=== PATIENT | female | born 1940 | race African-American/Black ===

== ENCOUNTER 2020-07-24 12:21 | Emergency (ER) | payer MEDICARE, OTHER ==
[~2020-07-24] VITALS: Ht 170.2 cm; Wt 91.0 kg
[2020-07-24 13:28] LABS: BASOPHILS % 1.1 % (0.0-2.0); EOSINOPHILS % 0.8 % (0.0-5.0); HEMATOCRIT. 37.1 % (36.0-48.0); HEMOGLOBIN. 12.5 g/dL (12.0-16.0); LYMPHOCYTES % 13.2 % (20.0-50.0); MEAN CORPUSCULAR HEMOGLOBIN 27.3 pg (28.0-32.0); MEAN CORPUSCULAR VOLUME 80.8 fL (81.0-99.0); MEAN PLATELET VOLUME 8.6 fl (7.4-10.4); MONOCYTES % 6.1 % (2.0-8.0); NEUTROPHILS % 78.8 % (40.0-76.0); PLATELET 363 x1000/uL (130-400); RED BLOOD CELL COUNT 4.59 mill/uL (4.2-5.4); RED CELL DISTRIBUTION WIDTH 13.1 % (11.6-14.6)
[2020-07-24 13:34] LABS: CHLORIDE 96 mEq/L (98-107)
[2020-07-24] MEDS ORDERED: SODIUM CHLORIDE 0.9% 1,000 ML IV ONE (14:15)
[2020-07-24 20:25] VITALS: BP 112/80
== END 2020-07-24 20:33 | disposition short-term general hospital (02) ==
LOC: ER 12:21
DX: R55 Syncope and collapse (principal); R42 Dizziness and giddiness; I10 Essential (primary) hypertension
CPT/HCPCS: 36415; 71045; 80053; 84484; 85025; 93005; 96360; 96361; 99285; J7030; 99283

== ENCOUNTER 2020-10-18 13:56 | Emergency (ER) | payer MEDICARE ==
[~2020-10-18] VITALS: Ht 165.1 cm; Wt 77.0 kg
[2020-10-18] MEDS ORDERED: SODIUM CHLORIDE 0.9% 1,000 ML IV ONE (15:00)
[2020-10-18 15:14] LABS: BASOPHILS % 1.2 % (0.0-2.0); EOSINOPHILS % 0.5 % (0.0-5.0); HEMATOCRIT. 32.1 % (36.0-48.0); HEMOGLOBIN. 10.6 g/dL (12.0-16.0); MEAN CORPUSCULAR HEMOGLOBIN 25.8 pg (28.0-32.0); MEAN CORPUSCULAR VOLUME 78.4 fL (81.0-99.0); MEAN PLATELET VOLUME 8.6 fl (7.4-10.4); MONOCYTES % 6.8 % (2.0-8.0); NEUTROPHILS % 74.5 % (40.0-76.0); PLATELET 377 x1000/uL (130-400); RED CELL DISTRIBUTION WIDTH 14.7 % (11.6-14.6)
[2020-10-18 15:21] LABS: CHLORIDE 103 mEq/L (98-107)
[2020-10-18] MEDS ORDERED: POTASSIUM CHLORIDE 20MEQ TABLET SR PO ONE (16:15)
[2020-10-18 18:53] LABS: CLARITY URINE CLEAR (CLEAR); COLOR URINE YELLOW (YELLOW); KETONES URINE NEGATIVE (NEGATIVE); LEUKOCYTE ESTERASE URINE TRACE (NEGATIVE); NITRITE URINE NEGATIVE (NEGATIVE); OCCULT BLOOD URINE NEGATIVE (NEGATIVE); PROTEIN URINE NEGATIVE (NEGATIVE); SPECIFIC GRAVITY URINE 1.012 (1.005-1.030); UROBILINOGEN URINE 0.2 E.U./dL (0.2-1.0)
[2020-10-18 23:49] VITALS: BP 131/64
== END 2020-10-18 23:54 | disposition short-term general hospital (02) ==
LOC: ER 13:56
DX: R55 Syncope and collapse (principal); E86.0 Dehydration; N28.9 Disorder of kidney and ureter, unspecified; I10 Essential (primary) hypertension; Z20.822 Contact with and (suspected) exposure to COVID-19; Z98.890 Other specified postprocedural states
CPT/HCPCS: 36415; 71045; 80053; 81003; 82962; 83735; 83880; 84484; 85025; 87426; 93005; 96360; 96361; 99285

== ENCOUNTER 2023-03-07 14:33 | Emergency (ER) | payer MEDICARE, OTHER ==
[~2023-03-07] VITALS: Ht 162.6 cm; Wt 73.0 kg
[2023-03-07 14:35] VITALS: O2SAT 99
[2023-03-07 15:41] LABS: BASOPHILS % 0.7 % (0.0-2.0); DIFFERENTIAL COMMENT 0; EOSINOPHILS % 2.4 % (0.0-5.0); HEMATOCRIT. 31.8 % (36.0-48.0); HEMOGLOBIN. 9.9 g/dL (12.0-16.0); LYMPHOCYTES % 9.3 % (20.0-50.0); MEAN CORPUSCULAR HEMOGLOBIN 22.1 pg (28.0-32.0); MEAN CORPUSCULAR HGB CONC 31.2 g/dL (31.0-37.0); MEAN CORPUSCULAR VOLUME 70.8 fL (81.0-99.0); MEAN PLATELET VOLUME 7.4 fl (7.4-10.4); NEUTROPHILS % 82.6 % (40.0-76.0); PLATELET 604 x1000/uL (130-400); RED BLOOD CELL COUNT 4.49 mill/uL (4.2-5.4); RED CELL DISTRIBUTION WIDTH 17.2 % (11.6-14.6); WHITE BLOOD COUNT 12.7 x1000/uL (4.5-11.0)
[2023-03-07 15:54] LABS: PROTHROMBIN TIME 10.3 sec (9.6-11.0)
[2023-03-07 15:58] LABS: ALANINE AMINOTRANSFERASE 8 IU/L (10-49); ALBUMIN 3.7 g/dL (3.2-4.8); ASPARTATE AMINOTRANSFERASE 13 IU/L (<34); BILIRUBIN TOTAL 0.3 mg/dL (0.1-1.0); CARBON DIOXIDE 27 mEq/L (21-32); CHLORIDE 101 mEq/L (98-107); CREATININE 1.4 mg/dL (0.6-1.0); GLUCOSE 205 mg/dL (70-105); POTASSIUM 3.3 mEq/L (3.5-5.1); PROTEIN TOTAL 6.3 g/dL (6.0-8.3); SODIUM 137 mEq/L (136-145); TROPONIN I HIGH SENSITIVITY 4 ng/L (3.0-34); UREA NITROGEN BLOOD 22 mg/dL (9-23)
[2023-03-07] MEDS ORDERED: POTASSIUM CHLORIDE 20MEQ TABLET SR PO ONE (16:30)
[2023-03-07] MEDS ORDERED: SODIUM CHLORIDE 0.9% 1,000 ML IV ONE (16:30)
[2023-03-07] MEDS ORDERED: AZIT250T12 MT (18:28)
[2023-03-07] MEDS ORDERED: AMOX1TAB16 MT (18:28)
[2023-03-07] MEDS ORDERED: CEFTRIAXONE 1GM PREMIX 50 ML IV ONE (18:30)
[2023-03-07 20:28] VITALS: BP 135/74; PULSE 85; RESP 16; TEMP 98.1
== END 2023-03-07 20:31 | disposition home or self-care (01) ==
LOC: ER 14:33
DX: J18.9 Pneumonia, unspecified organism (principal); N17.9 Acute kidney failure, unspecified; E87.6 Hypokalemia; E11.9 Type 2 diabetes mellitus without complications; I10 Essential (primary) hypertension; Z98.890 Other specified postprocedural states
CPT/HCPCS: 99285; 96365; 71045; 96361; 96366; 80053; 85025; 85610; 84484; 36415; 93005; J0696; J7030

== ENCOUNTER 2024-11-22 14:00 | Inpatient (IN) | payer OTHER, MEDICARE ==
[~2024-11-22] VITALS: Ht 165.1 cm; Wt 59.9 kg
[~2024-11-22 14:00] MED LIST: AMOX1TAB16 MT; AZIT250T12 MT
[2024-11-22 14:03] VITALS: O2SAT 97
[2024-11-22 15:07] LABS: CREATININE 1.3 mg/dL (0.6-1.0); UREA NITROGEN BLOOD 16 mg/dL (9-23)
[2024-11-22 15:08] LABS: BASOPHILS % 0.3 % (0.0-2.0); EOSINOPHILS % 0.5 % (0.0-5.0); HEMATOCRIT. 22.3 % (36.0-48.0); LYMPHOCYTES % 10.8 % (20.0-50.0); MEAN PLATELET VOLUME 8.1 fl (7.4-10.4); MONOCYTES % 5.3 % (2.0-8.0); NEUTROPHILS % 83.1 % (40.0-76.0); PLATELET 476 x1000/uL (130-400); RED BLOOD CELL COUNT 3.14 mill/uL (4.2-5.4); RED CELL DISTRIBUTION WIDTH 18.5 % (11.6-14.6); TROPONIN I HIGH SENSITIVITY 9 ng/L (3.0-34)
[2024-11-22 15:11] LABS: HEMOGLOBIN. 6.6 g/dL (12.0-16.0)
[2024-11-22] MEDS ORDERED: GUAIFENESIN 200MG/10ML SUGAR FREE UDC PO PRN (18:15)
[2024-11-22] MEDS ORDERED: IPRATROPIUM/ALBUTEROL 0.5-3(2.5)MG/3ML NEB HHN PRN (18:15)
[2024-11-22] MEDS ORDERED: ACETAMINOPHEN 325MG TABLET PO PRN ×2 (18:15)
[2024-11-22] MEDS ORDERED: DOCUSATE SODIUM 100MG CAPSULE PO PRN (18:15)
[2024-11-22] MEDS: INSULIN LISPRO 100 UNITS/ML SUBCUT SCH (18:20)
[2024-11-22] MEDS: SODIUM CHLORIDE 0.9% 1,000 ML IV SCH (18:24)
[2024-11-22] MEDS ORDERED: DEXTROSE 50% WATER 50ML SYRINGE IV PRN (18:30)
[2024-11-22] MEDS: PANTOPRAZOLE SODIUM 40 MG/VIAL IV SCH (18:39)
[2024-11-22 20:00] VITALS: BP 142/70; PULSE 81; RESP 18; TEMP 36.6; O2SAT 100
[2024-11-22] MEDS: BLOOD SUGAR DIAGNOSTIC STRIP TEST SCH (20:57)
[2024-11-22 21:01] LABS: PHOSPHORUS 3.3 mg/dL (2.5-4.9)
[2024-11-22 22:09] LABS: INR 1.0
[2024-11-22 22:17] LABS: TROPONIN I HIGH SENSITIVITY 14 ng/L (3.0-34)
[2024-11-22 22:18] VITALS: BP 120/45; PULSE 80; RESP 19; TEMP 36.418
[2024-11-23] VITALS: BP 170/86; PULSE 86; RESP 18; TEMP 36.6; O2SAT 100
[2024-11-23] MEDS ORDERED: AMLO5TAB88 PO (02:24)
[2024-11-23] MEDS ORDERED: FURO20TA4 PO (02:38)
[2024-11-23] MEDS ORDERED: MELATONIN 3MG TABLET PO SCH (03:00)
[2024-11-23 04:00] VITALS: BP 160/59; PULSE 84; RESP 18; TEMP 36.7; O2SAT 100
[2024-11-23] MEDS: ONDANSETRON HCL 4MG/2ML INJ IV PRN (06:14)
[2024-11-23 07:45] LABS: BASOPHILS % 0.6 % (0.0-2.0); EOSINOPHILS % 1.1 % (0.0-5.0); HEMATOCRIT. 25.1 % (36.0-48.0); HEMOGLOBIN. 8.0 g/dL (12.0-16.0); LYMPHOCYTES % 12.3 % (20.0-50.0); MEAN PLATELET VOLUME 7.8 fl (7.4-10.4); MONOCYTES % 8.7 % (2.0-8.0); NEUTROPHILS % 77.3 % (40.0-76.0); PLATELET 463 x1000/uL (130-400); RED BLOOD CELL COUNT 3.56 mill/uL (4.2-5.4); RED CELL DISTRIBUTION WIDTH 19.5 % (11.6-14.6)
[2024-11-23 08:00] VITALS: BP 139/74; PULSE 87; RESP 18; TEMP 36.1; O2SAT 100
[2024-11-23 08:10] LABS: CREATININE 1.3 mg/dL (0.6-1.0); TRIGLYCERIDE 81.0 mg/dL (0-150); UREA NITROGEN BLOOD 21.0 mg/dL (9-23)
[2024-11-23 08:11] LABS: LACTATE DEHYDROGENASE 152.0 IU/L (120-246); LDL CHOLESTEROL 58.0 mg/dL (5-100); TROPONIN I HIGH SENSITIVITY 12.0 ng/L (3.0-34)
[2024-11-23 08:14] LABS: T4 FREE 1.2 ng/dL (0.89-1.76)
[2024-11-23 08:18] LABS: ASPARTATE AMINOTRANSFERASE 10 IU/L (<34); BILIRUBIN DIRECT 0.2 mg/dL (<=3.0); BILIRUBIN TOTAL 0.4 mg/dL (0.1-1.0); PROTEIN TOTAL 5.1 g/dL (6.0-8.3)
[2024-11-23 12:00] VITALS: BP 146/80; PULSE 89; RESP 17; TEMP 36.2; O2SAT 100
[2024-11-23] MEDS ORDERED: NON FORMULARY MED XX SCH ×2 (13:15→14:30)
[2024-11-23] MEDS: IRON SUCROSE COMPLEX 100 MG/5 ML ML IV SCH (13:57)
[2024-11-23] MEDS ORDERED: IRON SUCROSE COMPLEX 100 MG/5 ML ML IV SCH (15:00)
[2024-11-23 16:00] VITALS: BP 145/78; PULSE 97; RESP 17; TEMP 36.2; O2SAT 100
[2024-11-23 16:15] LABS: CLARITY URINE CLEAR (CLEAR); COLOR URINE YELLOW (YELLOW); GLUCOSE URINE NEGATIVE (NEGATIVE); KETONES URINE TRACE (NEGATIVE); LEUKOCYTE ESTERASE URINE 2+ (NEGATIVE); NITRITE URINE NEGATIVE (NEGATIVE); OCCULT BLOOD URINE NEGATIVE (NEGATIVE); PH URINE 5.0 (4.5-8.0); PROTEIN URINE NEGATIVE (NEGATIVE); SPECIFIC GRAVITY URINE 1.018 (1.005-1.030); UROBILINOGEN URINE 0.2 E.U./dL (0.2-1.0)
[2024-11-23 16:28] LABS: BACTERIA URINE 1+; RBC URINE NONE SEEN /hpf (0-2); SQUAMOUS EPITHELIAL CELL URINE RARE /lpf (RARE/1+)
[2024-11-23 16:40] LABS: *AMPHETAMINES SCREEN URINE NEGATIVE (NEGATIVE)
[2024-11-23 16:42] LABS: *BARBITURATES SCREEN URINE NEGATIVE (NEGATIVE); *BENZODIAZEPINES SCREEN URINE NEGATIVE (NEGATIVE); *COCAINE SCREEN URINE NEGATIVE (NEGATIVE); CANNABINOID URINE SCREEN NEGATIVE (NEGATIVE); ECSTASY MDMA SCREEN URINE NEGATIVE (NEGATIVE); METHADONE URINE SCREEN NEGATIVE (NEGATIVE); OPIATES URINE SCREEN NEGATIVE (NEGATIVE); PHENCYCLIDINE URINE SCREEN NEGATIVE (NEGATIVE)
[2024-11-23] MEDS: SUCRALFATE 1G TABLET PO SCH (17:31)
[2024-11-23 20:00] VITALS: BP 150/73; PULSE 88; RESP 18; TEMP 36.2; O2SAT 95
[2024-11-24] VITALS: BP 142/78; PULSE 82; RESP 18; TEMP 36.4; O2SAT 98
[2024-11-24 04:00] VITALS: BP 139/70; PULSE 73; RESP 17; TEMP 36.3; O2SAT 98
[2024-11-24 08:00] VITALS: BP 138/55; PULSE 84; RESP 18; TEMP 36.9; O2SAT 97
[2024-11-24 09:48] LABS: BASOPHILS % 0.9 % (0.0-2.0); EOSINOPHILS % 1.5 % (0.0-5.0); HEMATOCRIT. 28.9 % (36.0-48.0); HEMOGLOBIN. 9.0 g/dL (12.0-16.0); LYMPHOCYTES % 15.2 % (20.0-50.0); MEAN PLATELET VOLUME 8.0 fl (7.4-10.4); MONOCYTES % 7.8 % (2.0-8.0); NEUTROPHILS % 74.6 % (40.0-76.0); PLATELET 471 x1000/uL (130-400); RED BLOOD CELL COUNT 4.03 mill/uL (4.2-5.4); RED CELL DISTRIBUTION WIDTH 20.4 % (11.6-14.6)
[2024-11-24 10:07] LABS: CREATININE 1.2 mg/dL (0.6-1.0); UREA NITROGEN BLOOD 15 mg/dL (9-23)
[2024-11-24] MEDS: DOCUSATE SODIUM 100MG CAPSULE PO SCH (10:10)
[2024-11-24 12:00] VITALS: BP 117/72; PULSE 90; RESP 18; TEMP 36.4; O2SAT 98
[2024-11-24 12:14] LABS: FOLIC ACID (FOLATE) SERUM 15.44 ng/mL (>5.38)
[2024-11-24 12:37] LABS: VITAMIN B12 SERUM > 2000 pg/mL (211-911)
[2024-11-24 16:00] VITALS: BP 132/72; PULSE 92; RESP 16; TEMP 36.3; O2SAT 98
[2024-11-24 20:00] VITALS: BP 145/64; PULSE 95; RESP 18; TEMP 36.3; O2SAT 96
[2024-11-24] MEDS: SENNOSIDES 8.6MG TABLET PO SCH (20:53)
[2024-11-25] VITALS (7 sets, daily range): BP systolic 116–179; BP diastolic 47–88; PULSE 64–97; RESP 16–21; TEMP 35.8–36.5; O2SAT 96–100
[2024-11-25 06:38] LABS: CREATININE 1.0 mg/dL (0.6-1.0); UREA NITROGEN BLOOD 14 mg/dL (9-23)
[2024-11-25 06:52] LABS: BASOPHILS % 0.6 % (0.0-2.0); EOSINOPHILS % 1.6 % (0.0-5.0); HEMATOCRIT. 25.3 % (36.0-48.0); HEMOGLOBIN. 7.9 g/dL (12.0-16.0); LYMPHOCYTES % 11.4 % (20.0-50.0); MEAN PLATELET VOLUME 8.0 fl (7.4-10.4); MONOCYTES % 8.4 % (2.0-8.0); NEUTROPHILS % 78.0 % (40.0-76.0); PLATELET 421 x1000/uL (130-400); RED BLOOD CELL COUNT 3.48 mill/uL (4.2-5.4); RED CELL DISTRIBUTION WIDTH 21.0 % (11.6-14.6)
[2024-11-25 06:53] LABS: INR 1.0
[2024-11-25] MEDS ORDERED: PROPOFOL 200MG/20ML VIAL IV ONE (11:02)
[2024-11-25] MEDS ORDERED: ONDANSETRON HCL 4MG/2ML INJ IV PRN (11:45)
[2024-11-26] VITALS: BP 118/55; PULSE 89; RESP 18; TEMP 36.2; O2SAT 99
[2024-11-26 04:00] VITALS: BP 142/70; PULSE 103; RESP 18; TEMP 36.3; O2SAT 100
[2024-11-26 08:00] VITALS: BP 153/94; PULSE 153; TEMP 36.3; O2SAT 96
[2024-11-26 12:00] VITALS: BP 160/72; PULSE 115; TEMP 36.4; O2SAT 98
[2024-11-26] MEDS: DEXT 5%/0.45% NACL 1000ML 1,000 ML IV SCH (13:10)
[2024-11-26] MEDS: DIATR MEGLU/DIATRIZOATE SOLN 30ML PO SCH (13:15)
[2024-11-26 16:00] VITALS: BP 145/75; PULSE 95; TEMP 36.7; O2SAT 97
[2024-11-26] MEDS ORDERED: IOHEXOL-300 100 ML BOTTLE ONE (16:15)
[2024-11-26] MEDS: FERROUS SULFATE 325MG TABLET PO SCH (18:00)
[2024-11-26] MEDS ORDERED: METOCLOPRAMIDE HCL 10MG/2ML VIAL IV SCH (18:00)
[2024-11-26 20:00] VITALS: BP 162/69; PULSE 88; RESP 18; TEMP 36.2; O2SAT 98
[2024-11-26] MEDS: BISACODYL 10MG SUPP PR SCH (20:00)
[2024-11-26] MEDS: METOCLOPRAMIDE HCL 10MG/2ML VIAL IV SCH (20:33)
[2024-11-27] VITALS: BP 158/66; PULSE 91; RESP 18; TEMP 36.2; O2SAT 97
[2024-11-27] MEDS ORDERED: IOHEXOL-300 50 ML BOTTLE IV ONE (00:08)
[2024-11-27 04:00] VITALS: BP 181/81; PULSE 87; RESP 18; TEMP 36.2; O2SAT 98
[2024-11-27 08:00] VITALS: BP 131/84; PULSE 81; RESP 16; TEMP 36.4; O2SAT 97
[2024-11-27] MEDS: ASCORBIC ACID 500 MG TABLET PO SCH (08:15)
[2024-11-27] MEDS: MULTIVITAMINS,THER W-MINERALS TABLET PO SCH (08:15)
[2024-11-27] MEDS: BISACODYL 5MG TABLET PO SCH ×2 (08:15→21:23)
[2024-11-27 08:34] LABS: BASOPHILS % 0.7 % (0.0-2.0); EOSINOPHILS % 1.8 % (0.0-5.0); HEMATOCRIT. 22.2 % (36.0-48.0); LYMPHOCYTES % 13.4 % (20.0-50.0); MEAN PLATELET VOLUME 7.6 fl (7.4-10.4); MONOCYTES % 6.7 % (2.0-8.0); NEUTROPHILS % 77.4 % (40.0-76.0); PLATELET 442 x1000/uL (130-400); RED BLOOD CELL COUNT 3.05 mill/uL (4.2-5.4); RED CELL DISTRIBUTION WIDTH 20.9 % (11.6-14.6)
[2024-11-27 08:49] LABS: CREATININE 0.8 mg/dL (0.6-1.0); UREA NITROGEN BLOOD 7 mg/dL (9-23)
[2024-11-27 08:51] LABS: PHOSPHORUS 1.4 mg/dL (2.5-4.9)
[2024-11-27 09:01] LABS: HEMOGLOBIN. 7.0 g/dL (12.0-16.0)
[2024-11-27 12:00] VITALS: BP 182/68; PULSE 88; RESP 13; TEMP 36.3; O2SAT 94
[2024-11-27 16:00] VITALS: BP 155/77; PULSE 95; RESP 16; TEMP 36.4; O2SAT 97
[2024-11-27 20:00] VITALS: BP 169/72; PULSE 94; RESP 19; TEMP 36.6; O2SAT 98
[2024-11-27] MEDS: CLONIDINE 0.1MG TABLET PO PRN (21:24)
[2024-11-28] VITALS (10 sets, daily range): BP systolic 146–180; BP diastolic 66–89; PULSE 79–98; RESP 16–19; TEMP 36–36.61404; O2SAT 98–100
[2024-11-28 07:26] LABS: BASOPHILS % 0.5 % (0.0-2.0); EOSINOPHILS % 1.3 % (0.0-5.0); HEMATOCRIT. 23.6 % (36.0-48.0); HEMOGLOBIN. 7.5 g/dL (12.0-16.0); LYMPHOCYTES % 10.7 % (20.0-50.0); MEAN PLATELET VOLUME 7.7 fl (7.4-10.4); MONOCYTES % 5.9 % (2.0-8.0); NEUTROPHILS % 81.6 % (40.0-76.0); PLATELET 322 x1000/uL (130-400); RED BLOOD CELL COUNT 3.10 mill/uL (4.2-5.4)
[2024-11-28 07:42] LABS: CREATININE 0.8 mg/dL (0.6-1.0); UREA NITROGEN BLOOD 6 mg/dL (9-23)
[2024-11-28] MEDS: BISACODYL 10MG SUPP PR SCH (08:12)
[2024-11-28 08:51] LABS: RED CELL DISTRIBUTION WIDTH 23.6 % (11.6-14.6)
[2024-11-28] MEDS: POTASSIUM CHLORIDE 20MEQ TABLET SR PO NR (16:55)
[2024-11-28] MEDS: KCL 20MEQ/100ML PREMIX 100 ML IV NR (17:02)
[2024-11-29] VITALS: BP 144/63; PULSE 93; RESP 16; TEMP 36.1; O2SAT 97
[2024-11-29 04:00] VITALS: BP 174/87; PULSE 85; RESP 16; TEMP 36.3; O2SAT 100
[2024-11-29 08:00] VITALS: BP 152/75; PULSE 84; RESP 16; TEMP 36.2; O2SAT 97
[2024-11-29 08:30] LABS: PLATELET 338 x1000/uL (130-400); RED BLOOD CELL COUNT 3.35 mill/uL (4.2-5.4); RED CELL DISTRIBUTION WIDTH 24.4 % (11.6-14.6)
[2024-11-29] MEDS ORDERED: CLONIDINE 0.1MG TABLET PO PRN (08:30)
[2024-11-29 08:39] LABS: UREA NITROGEN BLOOD 5 mg/dL (9-23)
[2024-11-29 08:41] LABS: PHOSPHORUS 1.3 mg/dL (2.5-4.9)
[2024-11-29 08:54] LABS: CREATININE 0.8 mg/dL (0.6-1.0)
[2024-11-29 12:00] VITALS: BP 135/78; PULSE 83; RESP 16; TEMP 36.2; O2SAT 99
[2024-11-29 16:00] VITALS: BP 141/67; PULSE 88; RESP 16; TEMP 36.2; O2SAT 100
[2024-11-29] MEDS: POTASSIUM PHOSPHATE 30 MMOL in DEXT 5% WATER 490 ML IV SCH (16:50)
[2024-11-29] MEDS: MAGNESIUM 4 G PREMIX 100 ML IV SCH (16:51)
[2024-11-29 20:00] VITALS: BP 159/63; PULSE 95; RESP 20; TEMP 36.3; O2SAT 96
[2024-11-30] VITALS: BP 141/64; PULSE 85; RESP 19; TEMP 36.1; O2SAT 96
[2024-11-30 04:00] VITALS: BP_SYST 126; BP_SYST 129; BP_DIAS 60; BP_DIAS 62; PULSE 78; PULSE 81; RESP 19; RESP 20; TEMP 36.1; TEMP 36.3; O2SAT 96; O2SAT 97
[2024-11-30 07:35] LABS: BASOPHILS % 0.6 % (0.0-2.0); EOSINOPHILS % 2.2 % (0.0-5.0); HEMATOCRIT. 24.2 % (36.0-48.0); HEMOGLOBIN. 7.9 g/dL (12.0-16.0); LYMPHOCYTES % 9.6 % (20.0-50.0); MEAN PLATELET VOLUME 7.7 fl (7.4-10.4); MONOCYTES % 7.5 % (2.0-8.0); NEUTROPHILS % 80.1 % (40.0-76.0); PLATELET 332 x1000/uL (130-400); RED BLOOD CELL COUNT 3.19 mill/uL (4.2-5.4); RED CELL DISTRIBUTION WIDTH 25.6 % (11.6-14.6)
[2024-11-30 08:00] VITALS: BP 134/64; PULSE 89; RESP 17; TEMP 36.3; O2SAT 98
[2024-11-30 08:02] LABS: CREATININE 0.8 mg/dL (0.6-1.0); UREA NITROGEN BLOOD < 5 mg/dL (9-23)
[2024-11-30 08:22] LABS: ADD RBC MORPHOLOGY YES
[2024-11-30 12:00] VITALS: BP 134/69; PULSE 81; RESP 16; TEMP 36.3; O2SAT 98
[2024-11-30 16:00] VITALS: BP 136/68; PULSE 88; RESP 18; TEMP 36.2; O2SAT 98
[2024-11-30] MEDS ORDERED: SENN-362 PO (17:39)
[2024-11-30] MEDS ORDERED: SUCR1TAB PO (17:39)
[2024-11-30] MEDS ORDERED: PROT40 MT (17:39)
[2024-11-30] MEDS ORDERED: ASCO500T20 PO (17:39)
[2024-11-30] MEDS ORDERED: FERR-63 PO (17:39)
[2024-11-30] MEDS ORDERED: POLY17PO3 MT (17:40)
[2024-11-30 18:20] VITALS: BP 144/71; PULSE 90; RESP 17; TEMP 97.5
[2024-11-30 20:49] LABS: PLATELET ESTIMATE NORMAL
== END 2024-11-30 19:08 | disposition home or self-care (01) | DRG 374 ==
LOC: ER 14:00 → EDBEDREQ 14:34 → EDBEDREQTM 15:57 → ENRESERV 17:11 → 6WST 20:13
PROVIDERS: ADMIT Internal Medicine; ATTEND Internal Medicine
PROC: 30233N1 Transfusion of Nonautologous Red Blood Cells into Peripheral Vein, Percutaneous Approach (ICD-10-PCS; principal; 2024-11-22)
PROC: 0DB58ZX Excision of Esophagus, Via Natural or Artificial Opening Endoscopic, Diagnostic (ICD-10-PCS; 2024-11-25)
DX: C15.5 Malignant neoplasm of lower third of esophagus (principal); N17.0 Acute kidney failure with tubular necrosis; E44.0 Moderate protein-calorie malnutrition; E87.20 Acidosis, unspecified; J90 Pleural effusion, not elsewhere classified; K92.0 Hematemesis; D50.9 Iron deficiency anemia, unspecified; E83.51 Hypocalcemia; Z20.822 Contact with and (suspected) exposure to COVID-19; E86.0 Dehydration; D72.829 Elevated white blood cell count, unspecified; N18.9 Chronic kidney disease, unspecified; K59.00 Constipation, unspecified; R09.02 Hypoxemia; E11.22 Type 2 diabetes mellitus with diabetic chronic kidney disease; I12.9 Hypertensive chronic kidney disease with stage 1 through stage 4 chronic kidney disease, or unspecified chronic kidney disease; D75.838 Other thrombocytosis; R13.10 Dysphagia, unspecified; R62.7 Adult failure to thrive; Z90.49 Acquired absence of other specified parts of digestive tract; Z90.710 Acquired absence of both cervix and uterus; Z79.899 Other long term (current) drug therapy; Z68.22 Body mass index [BMI] 22.0-22.9, adult
CPT/HCPCS: 36415; 71045; 71260; 74018; 74177; 76770; 80048; 80061; 80076; 80305; 81003; 82040; 82378; 82550; 82607; 82728; 82746; 82962; 83036; 83540; 83550; 83605; 83615; 83735; 83880; 83930; 84100; 84439; 84443; 84484; 85014; 85018; 85025; 85027; 85044; 86850; 86900; 86920; 87426; 88305; 93005; 93970; 96361; 96374; 96375; 97162; 97166; 99291; A4606; J1815; J2405; J2470; J2704; J2765; J3475; J3480; J3490; J7060; P9016; Q9963; Q9967